=== PATIENT | female | born 2000 | race Caucasian/White ===

== ENCOUNTER 2020-10-07 20:00 | Emergency (ER) | payer MEDICAID ==
[~2020-10-07] VITALS: Ht 142.2 cm; Wt 47.7 kg
[2020-10-07 20:10] VITALS: TEMP 97.8
[2020-10-07 22:26] LABS: EOS # 0.2 (0.0-0.7); EOS % 3.6 % (0-4.0); GRAN # 2.1 (1.4-6.5); GRAN % 49.8 % (42.2-75.2); HEMATOCRIT 37.4 % (37.0-47.0); HEMOGLOBIN 12.2 g/dl (12.5-16.0); LYMPH # 1.6 (1.2-3.4); LYMPH % 37.9 % (20.0-51.0); MEAN CELL VOLUME 85 fl (80.0-100.0); MEAN CORPUSCULAR HEMOGLOBIN 28 pg (27.0-31.0); MEAN CORPUSCULAR HGB CONC 33 g/dl (33.0-37.0); MEAN PLATELET VOLUME 9.1 fl (7.4-10.4); MONO # 0.3 (0.1-0.6); MONO % 7.5 % (1.7-9.3); PLATELET COUNT 247 K/mm3 (130-400); RED BLOOD COUNT 4.38 M/mm3 (4.10-5.30)
[2020-10-07 22:32] LABS: ALBUMIN 4.6 gm/dL (3.5-5.0); BILIRUBIN,TOTAL 0.3 mg/dL (0.0-1.0); CALCIUM 9.2 mg/dL (8.4-10.2); CREATININE, serum 0.45 (0.52-1.25); POTASSIUM 3.8 mmol/L (3.4-5.0); TOTAL PROTEIN 7.8 gm/dL (6.4-8.2)
[2020-10-07 23:03] VITALS: BP 121/73; PULSE 75
== END 2020-10-07 23:03 | disposition home or self-care (01) ==
LOC: COL.ER 20:00
PROVIDERS: Nurse Practitioner Primary Care
DX: N92.0 Excessive and frequent menstruation with regular cycle (principal); Z32.02 Encounter for pregnancy test, result negative; Z88.6 Allergy status to analgesic agent

== ENCOUNTER 2020-12-23 16:54 | Emergency (ER) | payer MEDICAID ==
[~2020-12-23] VITALS: Ht 139.7 cm; Wt 47.7 kg
[2020-12-23 17:16] VITALS: BP 128/82; TEMP 98.9
[2020-12-23 18:03] VITALS: PULSE 92
== END 2020-12-23 18:02 | disposition home or self-care (01) ==
LOC: COL.ER 16:54
DX: S62.316A Displaced fracture of base of fifth metacarpal bone, right hand, initial encounter for closed fracture (principal); Z88.6 Allergy status to analgesic agent; W23.1XXA Caught, crushed, jammed, or pinched between stationary objects, initial encounter

== ENCOUNTER 2021-01-31 10:30 | Emergency (ER) | payer MEDICAID ==
[~2021-01-31] VITALS: Ht 139.7 cm; Wt 46.4 kg
[2021-01-31 10:41] VITALS: TEMP 97.4
[2021-01-31] MEDS ORDERED: PREDNISONE20 MG PO (11:07)
[2021-01-31] MEDS ORDERED: ZITHROMAX Z PA250 MG PO (11:07)
[2021-01-31 11:47] VITALS: BP 123/83; PULSE 95
== END 2021-01-31 11:47 | disposition home or self-care (01) ==
LOC: COL.ER 10:30
DX: J45.909 Unspecified asthma, uncomplicated (principal); Z88.6 Allergy status to analgesic agent

== ENCOUNTER 2021-04-11 21:35 | Emergency (ER) | payer MEDICAID ==
[~2021-04-11] VITALS: Ht 139.7 cm; Wt 49.1 kg
[~2021-04-11 21:35] MED LIST: PREDNISONE20 MG PO; ZITHROMAX Z PA250 MG PO
[2021-04-11 22:25] LABS: STREP SCREEN NEGATIVE
[2021-04-11 22:40] VITALS: BP 155/84; PULSE 70; TEMP 98
== END 2021-04-11 22:40 | disposition home or self-care (01) ==
LOC: COL.ER 21:35
PROVIDERS: Emergency Medicine
DX: J02.9 Acute pharyngitis, unspecified (principal); Q78.0 Osteogenesis imperfecta; F17.290 Nicotine dependence, other tobacco product, uncomplicated

== ENCOUNTER 2021-04-29 02:27 | Emergency (ER) | payer MEDICAID ==
[~2021-04-29] VITALS: Ht 139.7 cm; Wt 47.7 kg
[2021-04-29 02:29] VITALS: TEMP 97.2
[2021-04-29 04:58] VITALS: BP 132/70; PULSE 62
== END 2021-04-29 04:58 | disposition home or self-care (01) ==
LOC: COL.ER 02:27
DX: F10.129 Alcohol abuse with intoxication, unspecified (principal); Q78.0 Osteogenesis imperfecta
CPT/HCPCS: J1885; J2270; J2405; J7030

== ENCOUNTER 2021-07-08 18:44 | Emergency (ER) | payer MEDICAID ==
[~2021-07-08] VITALS: Ht 137.2 cm; Wt 48.2 kg
[2021-07-08 18:57] VITALS: TEMP 98.2
[2021-07-08 19:42] LABS: BASO % 0.6 % (0.0-2.0); EOS # 0.1 (0.0-0.7); GRAN # 1.6 (1.4-6.5); GRAN % 48.2 % (42.2-75.2); HEMATOCRIT 30.8 % (37.0-47.0); HEMOGLOBIN 9.4 g/dl (12.5-16.0); LYMPH # 1.3 (1.2-3.4); LYMPH % 38.2 % (20.0-51.0); MEAN CELL VOLUME 76 fl (80.0-100.0); MEAN CORPUSCULAR HEMOGLOBIN 23 pg (27.0-31.0); MEAN CORPUSCULAR HGB CONC 31 g/dl (33.0-37.0); MONO # 0.3 (0.1-0.6); PLATELET COUNT 192 K/mm3 (130-400); RED BLOOD COUNT 4.05 M/mm3 (4.10-5.30)
[2021-07-08 19:58] LABS: ALANINE AMINOTRANSFERASE 16 U/L (4-34); ALKALINE PHOSPHATASE 66 U/L (50-136); ANION GAP 8 mmol/L (7-16); AST,SGOT 28 U/L (15-37); BILIRUBIN,TOTAL < 0.1 mg/dL (0.0-1.0); BLOOD UREA NITROGEN 11 mg/dL (7-17); CALCIUM 8.9 mg/dL (8.4-10.2); CARBON DIOXIDE 24 mmol/L (22-30); CHLORIDE 105 mmol/L (98-107); CREATININE, serum 0.53 (0.52-1.25); GLUCOSE 90 mg/dL (74-106); POTASSIUM 3.1 mmol/L (3.4-5.0); SODIUM 137 mmol/L (137-145); TOTAL PROTEIN 7.2 gm/dL (6.4-8.2)
[2021-07-08 20:15] LABS: HCG,QUANTITATIVE 166 mIU/mL (0-5)
[2021-07-08 21:12] LABS: COLLECTION METHOD CLEAN CATCH
[2021-07-08 21:18] LABS: MUCOUS Present /lpf; PH 5 (5-8); SQUAMOUS EPITHELIAL 0-2 /hpf; URINE APPEARANCE Clear; URINE BACTERIA None Seen /hpf; URINE BILIRUBIN Negative (NEGATIVE); URINE BLOOD Negative (NEGATIVE); URINE COLOR Yellow; URINE GLUCOSE Negative (NEGATIVE); URINE KETONE Negative (NEGATIVE); URINE LEUKOCYTE ESTERASE Negative (NEGATIVE); URINE NITRATE Negative (NEGATIVE); URINE PROTEIN(semi-quant) Negative (NEGATIVE); URINE RBC 0-2 /hpf; URINE UROBILINOGEN Negative (NEGATIVE)
[2021-07-08 21:52] VITALS: BP 142/70; PULSE 64
== END 2021-07-08 21:52 | disposition home or self-care (01) ==
LOC: COL.ER 18:44
PROVIDERS: Physician Assistant
DX: Z34.01 Encounter for supervision of normal first pregnancy, first trimester (principal); Z3A.00 Weeks of gestation of pregnancy not specified
CPT/HCPCS: J2765; J7030

== ENCOUNTER 2021-07-11 22:32 | Emergency (ER) | payer MEDICAID ==
[~2021-07-11] VITALS: Ht 137.2 cm; Wt 48.2 kg
[2021-07-11 22:48] VITALS: TEMP 98
[2021-07-11 23:18] LABS: BASO % 0.6 % (0.0-2.0); EOS # 0.1 (0.0-0.7); EOS % 2.7 % (0-4.0); GRAN # 1.5 (1.4-6.5); GRAN % 45.6 % (42.2-75.2); HEMOGLOBIN 10.5 g/dl (12.5-16.0); LYMPH # 1.4 (1.2-3.4); LYMPH % 42.1 % (20.0-51.0); MEAN CELL VOLUME 76 fl (80.0-100.0); MEAN CORPUSCULAR HEMOGLOBIN 24 pg (27.0-31.0); MEAN CORPUSCULAR HGB CONC 31 g/dl (33.0-37.0); MEAN PLATELET VOLUME 9.1 fl (7.4-10.4); MONO # 0.3 (0.1-0.6); MONO % 8.7 % (1.7-9.3); PLATELET COUNT 222 K/mm3 (130-400); RED BLOOD COUNT 4.41 M/mm3 (4.10-5.30)
[2021-07-11 23:21] LABS: HEMATOCRIT 33.6 % (37.0-47.0)
[2021-07-11 23:30] LABS: ALBUMIN 4.5 gm/dL (3.5-5.0); BILIRUBIN,TOTAL 0.3 mg/dL (0.0-1.0); CALCIUM 9.1 mg/dL (8.4-10.2); CREATININE, serum 0.52 (0.52-1.25); POTASSIUM 3.7 mmol/L (3.4-5.0)
[2021-07-12 02:04] VITALS: BP 132/70; PULSE 67
== END 2021-07-12 03:04 | disposition home or self-care (01) ==
LOC: COL.ER 22:32
PROVIDERS: Emergency Medicine
DX: O20.0 Threatened abortion (principal); Z3A.01 Less than 8 weeks gestation of pregnancy
CPT/HCPCS: J7030

== ENCOUNTER 2021-11-19 13:44 | Emergency (ER) | payer MEDICAID ==
[~2021-11-19] VITALS: Ht 137.2 cm; Wt 48.6 kg
[2021-11-19 14:33] VITALS: BP 135/78; TEMP 98.3
[2021-11-19 14:45] VITALS: PULSE 87
[2021-11-19 16:17] LABS: STREP SCREEN NEGATIVE
== END 2021-11-19 16:36 | disposition home or self-care (01) ==
LOC: COL.ER 13:44
PROVIDERS: Physician Assistant
DX: J06.9 Acute upper respiratory infection, unspecified (principal); Z20.822 Contact with and (suspected) exposure to COVID-19

== ENCOUNTER 2021-11-27 18:13 | Emergency (ER) | payer MEDICAID ==
[~2021-11-27] VITALS: Ht 137.2 cm; Wt 48.2 kg
[2021-11-27 21:30] VITALS: BP 121/78; PULSE 89; TEMP 98.9
== END 2021-11-27 21:30 | disposition home or self-care (01) ==
LOC: COL.ER 18:13
DX: U07.1 COVID-19 (principal); Z88.5 Allergy status to narcotic agent

== ENCOUNTER 2022-07-12 16:26 | Emergency (ER) | payer MEDICAID ==
[~2022-07-12] VITALS: Ht 137.2 cm; Wt 50.9 kg
[2022-07-12 16:39] VITALS: TEMP 99.1
[2022-07-12 17:43] LABS: BASO % 0.6 % (0.0-2.0); EOS # 0.1 K/mm3 (0.0-0.7); EOS % 4.3 % (0.0-4.0); GRAN # 1.7 K/mm3 (1.4-6.5); GRAN % 53.5 % (42.2-75.2); LYMPH # 1.1 K/mm3 (1.2-3.4); LYMPH % 32.6 % (20.0-51.0); MEAN CELL VOLUME 73 fl (80.0-100.0); MEAN CORPUSCULAR HGB CONC 30 g/dl (33.0-37.0); MEAN PLATELET VOLUME 9.6 fl (7.4-10.4); MONO # 0.3 K/mm3 (0.1-0.6); PLATELET COUNT 225 K/mm3 (130-400); RED BLOOD COUNT 4.27 M/mm3 (4.10-5.30); REDCELL DISTRIBUTION WIDTH-CV 15.6 % (11.5-14.5)
[2022-07-12 17:49] LABS: HEMOGLOBIN 9.4 g/dl (12.5-16.0); MEAN CORPUSCULAR HEMOGLOBIN 22 pg (27-31)
[2022-07-12 17:50] LABS: COLLECTION METHOD CLEAN CATCH
[2022-07-12 18:02] LABS: ALBUMIN 4.1 gm/dL (3.5-5.0); BILIRUBIN,TOTAL 0.3 mg/dL (0.2-1.2); CALCIUM 9.5 mg/dL (8.4-10.2); CREATININE, serum 0.65 mg/dL (0.57-1.11); POTASSIUM 3.9 mmol/L (3.5-4.5)
[2022-07-12 18:11] LABS: URINE APPEARANCE Clear (CLEAR/HAZY); URINE COLOR Yellow (YELLOW)
[2022-07-12 18:12] LABS: URINE BLOOD TRACE-INTACT (NEGATIVE); URINE GLUCOSE Negative (NEGATIVE); URINE KETONE TRACE (NEGATIVE); URINE NITRATE Negative (NEGATIVE); URINE PROTEIN(semi-quant) Negative (NEGATIVE); URINE UROBILINOGEN 0.2 E.U/dL (0.2-1.0)
[2022-07-12 18:15] LABS: MUCOUS Present (NOT PRESENT); SQUAMOUS EPITHELIAL 0-2 /hpf (0-10); URINE BACTERIA Rare /hpf (NONE SEEN); URINE RBC 0-2 /hpf (0-2)
[2022-07-12 18:55] VITALS: BP 109/65; PULSE 78
== END 2022-07-12 18:55 | disposition home or self-care (01) ==
LOC: COL.ER 16:26
PROVIDERS: Nurse Practitioner
DX: O26.891 Other specified pregnancy related conditions, first trimester (principal); R10.32 Left lower quadrant pain; R10.31 Right lower quadrant pain; O99.011 Anemia complicating pregnancy, first trimester; Z28.310 Unvaccinated for COVID-19; Z3A.01 Less than 8 weeks gestation of pregnancy

== ENCOUNTER → 2022-12-24 | Outpatient (CLI) | payer MEDICAID | LOC: COL.LAB 10:15 | DX: O28.8 Other abnormal findings on antenatal screening of mother (principal); Z3A.27 27 weeks gestation of pregnancy ==